=== PATIENT | female | born 1980 | race Two or more races ===

== ENCOUNTER → 2024-10-10 | Outpatient (CLI) | payer OTHER | END | disposition home or self-care (01) | LOC: SONOGRAMA 07:49 | PROVIDERS: ATTEND General Practice | DX: R74.8 Abnormal levels of other serum enzymes (principal); R76.8 Other specified abnormal immunological findings in serum ==

== ENCOUNTER 2025-01-28 13:48 | Outpatient (CLI) | payer OTHER ==
[~2025-01-28 13:48] MED LIST: MOUNJARO2.5 MG/0.5 SQ; PROBIOTIC1 EAC4
== END 2025-01-28 13:54 | disposition home or self-care (01) ==
LOC: MAMO-SONO 13:48
PROVIDERS: ATTEND Obstetrics & Gynecology
DX: N64.4 Mastodynia (principal)

== ENCOUNTER 2025-01-29 07:02 | Day surgery (SDC) | payer OTHER ==
[2025-01-23 07:47] VITALS: BP 118/75
[2025-01-23 08:39] LABS: URINE APPEARANCE Clear; URINE BILIRRUBIN Negative (NEGATIVE); URINE BLOOD Negative; URINE COLOR Yellow; URINE GLUCOSE Negative (NEGATIVE); URINE KETONE Negative (NEGATIVE); URINE LEUKOCYTE Negative; URINE NITRATE Negative; URINE PROTEIN Negative (NEGATIVE); URINE UROBILINOGEN 0.2 E.U./dl
[2025-01-23 08:44] LABS: URINE BACTERIA 253.3 uL (0.0-1933); URINE EPITHELIAL CELLS 16.3 uL (0.0-38.8); URINE WBC 4.9 uL (0.0-23.2)
[2025-01-23 08:57] LABS: HEMATOCRIT 35.9 % (36.0-45.00); HEMOGLOBIN 11.9 g/dL (12.0-15.00); MEAN CELL VOLUME 85.8 fL (80.00-100.00); MEAN CORPUSCULAR HEMOGLOBIN 28.4 pg (27.00-32.0); MEAN CORPUSCULAR HGB CONC 33.1 g/dl (32.0-36.0); PLATELET COUNT 283 K/uL (150-450); RED BLOOD COUNT 4.18 M/uL (4.00-6.00); RED CELL DISTRIBUTION WIDTH 13.1 % (11.5-14.5)
[2025-01-23 08:58] LABS: URINE CAST 0.14 uL (0.0-1.40)
[2025-01-23 09:08] LABS: INR 1.03; PARTIAL THROMBOPLASTIN TIME 27.6 SECONDS (22.0-34.0); PROTHROMBIN TIME 11.2 SECONDS (9.0-11.5)
[2025-01-23 09:35] LABS: ALBUMIN 3.9 gm/dL (3.4-5.0); BILIRUBIN TOTAL 0.96 mg/dL (0.3-1.2); CALCIUM 9.2 mg/dL (8.5-10.1); CREATININE SERUM 0.87 mg/dL (0.55-1.02); GFR 70.73; GLOBULINA 3.4 G/DL (2.4-3.5); POTASSIUM 3.89 mEq/L (3.5-5.1); TOTAL PROTEIN 7.3 gm/dL (6.4-8.2)
[~2025-01-29] VITALS: Ht 160 cm; Wt 78.0 kg
[2025-01-29] MEDS ORDERED: BUPIVACAINE HCL 30 ML VIAL IJ ONE (13:00)
[2025-01-29] MEDS ORDERED: CEFAZOLIN SODIUM 1,000 MG VIAL IV ONE (13:00)
== END 2025-01-29 16:40 | disposition home or self-care (01) ==
LOC: CIR.AMB 07:02
PROVIDERS: ATTEND Orthopaedic Surgery Hand Surgery
DX: G56.01 Carpal tunnel syndrome, right upper limb (principal)